=== PATIENT | female | born 1970 | race Caucasian/White ===

== ENCOUNTER 2020-10-23 09:39 | Emergency (ER) | payer SELFPAY ==
--- NOTE | 2020-10-23 10:18 | RAD REPORT ---
EXAM DESCRIPTION: CT - Ct Stroke Brain Wo Cont - 10/23/2020 10:06 am CLINICAL HISTORY: WEAKNESS Headache, drowsiness, CVA symptomology COMPARISON: No comparisons TECHNIQUE: All CT scans are performed using dose optimization technique as appropriate and may inclu de automated exposure control or mA/KV adjustment according to patient size. FINDINGS: No intracranial hemorrhage, hydrocephalus or extra-axial fluid collection.Areas of diminis hed density measuring 5 cm in the left frontal region none left posterior parietal region measuring 2 cm noted. These have the appearance gliosis/remote infarction. The paranasal sinuses and mastoids are clear. The calvarium is intact. IMPRESSION: No acute intracranial abnormality. 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 If there is continued clinical concern for acute CVA, MRI brain would be advised. The findings were discussed with Dr. Santiago in the ER On 10/23/2020 at 10:13 a.m. by telephone.
[2020-10-23 10:25] LABS: Absolute Lymphocytes (CBC) 1.7 K/uL (0.7-4.9); Basophils % 0.7 % (0-1.3); Hematocrit 39.1 % (36.0-45.0); Lymphocytes % 18.8 % (15.3-44.8); MPV 8.9 fL (7.6-11.3); RBC Red Blood Cell Count 4.24 M/uL (3.86-4.86)
[2020-10-23 10:26] LABS: Protime INR 0.92
[2020-10-23 10:37] LABS: BUN Blood Urea Nitrogen 12 mg/dL (7-18); Bicarbonate 27 mmol/L (21-32); Glucose Level 98 mg/dL (74-106); Sodium Level 141 mmol/L (136-145)
[2020-10-23] MEDS ORDERED: TRAMADOL HCL 50 MG TAB ONE (11:07)
--- NOTE | 2020-10-23 11:37 | RAD REPORT ---
EXAM DESCRIPTION: RAD - Chest Single View - 10/23/2020 11:20 am CLINICAL HISTORY: weak Chest pain. COMPARISON: No comparisons FINDINGS: Portable technique limits examination quality. The lungs are grossly clear. The heart is normal in size. No displaced fractures. IMPRESSION: No acute intrathoracic process suspected.
--- NOTE | 2020-10-23 15:40 | RAD REPORT ---
EXAM DESCRIPTION: MRI - Brain W/Wo Cont - 10/23/2020 3:23 pm CLINICAL HISTORY: Numbness, weaknessright-sided blurred vision, right arm numbness and weakness, hea dache COMPARISON: MRA Head Wo Cont dated 10/23/2020; MRA Neck W/Wo Cont dated 10/23/2020; Ct Stroke Brain Wo Cont dated 10/23/2020 TECHNIQUE: Sagittal and axial T1-weighted images were obtained. Axial PD/heavily T2-weighted and T2- FLAIR images were obtained along with axial DWI/ADC mapping sequences. Coronal heavily T2 weighted s equence obtained. Axial and coronal post-contrast T1-weighted images were also obtained. A 17 ml Mul tihance contrast following utilized. FINDINGS: No intracranial hemorrhage, mass or acute infarction. Moderately large area of gliosis pre sent in the lateral aspect of the left frontal lobe. There is hyperintense T2/IR signal along the jesus ndary of the gliosis There is no edema or shift of midline structures. No extra-axial fluid collectio ns. Bethea-matter/white matter junction is preserved. Signal voids are seen as a normal finding in the major intracranial vessels. Patient has no significant atrophy or chronic ischemic change. Ventricle s are normal. No globe or orbital content abnormality seen. Post-contrast images show normal enhancement. No dural thickening. Mastoid air cells and paranasal sinuses are clear. Asymmetry of the petrous apices noted. There is no rmal aeration on the right. Hyperintense T2/IR signal is present in the left petrous apex with less i ntense increased T1 signal. The T1 signal does not change on postcontrast imaging. CT imaging shows n on mineralized opacification of the left petrous apex. This may be an old or chronic petrous apicitis pattern that is unrelated to any acute clinical presentation. IMPRESSION: No acute infarction changes are present. No acute intracranial finding seen. Patient has moderately large area of gliosis and associated signal abnormality along the margins of t he gliosis lateral left frontal lobe. This matches the CT finding and is consistent with old ischemic insult. Signal abnormality in the left petrous apex is probably from an old infectious/inflammatory process. This is probably not active and is not believed be related to the patient's acute clinical presentati on.
--- NOTE | 2020-10-23 15:44 | RAD REPORT ---
EXAM DESCRIPTION: MRI - MRA Head Wo Cont - 10/23/2020 3:23 pm CLINICAL HISTORY: CVA, right-sided blurred vision, weakness right arm, headache COMPARISON: MRI brain same date, CT head same date TECHNIQUE: Axial and coronal 3D [id number]-wvihab image acquisition was performed. 3D rotational images were generated with source and reconstruction images reviewed. Horizontal and vertical axis rotation al views generated using MIP protocol. FINDINGS: Major venous sinuses are patent. No aneurysm or vascular malformation identifiable. Distal vertebral arteries, basilar arteries and posterior cerebral arteries show no significant findi ngs. From skullbase to supraclinoid termination the internal carotid arteries also without significan t finding. Anterior cerebral artery circulation and right middle cerebral artery circulation are unre markable. There is some truncation or diminished size to left MCA branches supplying the lateral aspe ct of the left frontal lobe at the area of known remote gliosis. This is not an acute finding or of a cute clinical significance. IMPRESSION: MRA head examination, as detailed above, shows no acute vascular abnormality.
--- NOTE | 2020-10-23 15:45 | RAD REPORT ---
EXAM DESCRIPTION: MRI - MRA Neck W/Wo Cont - 10/23/2020 3:23 pm CLINICAL HISTORY: CVA, right-sided blurred vision, right arm numbness and weakness, headache COMPARISON: CT head same date, MRI brain same date, MRA head same date TECHNIQUE: MR angiography of the cervical vasculature performed. Coronal imaging plane acquisition u tilized. A 17 MultiHance contrast volume was utilized. Coronal reformatted images were generated and reviewed. Vertical axis 3D rotational projections obtained using maximum intensity projection protoco l. FINDINGS: Aortic arch is 3 vessel configuration with no origins stenosis. Origins of the codominant vertebral arteries without suspicious finding. The bilateral common carotid and internal carotid victorino isaías show no dissection, stenosis or suspicious findings. There is tortuosity of the mid and distal p ortions of the internal carotid arteries. No subclavian artery abnormality seen. IMPRESSION: Unremarkable MRA of the neck
--- NOTE | 2020-10-23 16:36 | ER ---
Nurse's Notes [facility] Name: Emilia Kendall Age: 50 yrs Sex: Female : 1970 Arrival Date: 10/23/2020 Time: 09:45 Bed 5 Private MD: Diagnosis: Palpitations;Paresthesia of skin Presentation: 10/23 09:45 Coronavirus screen: At this time, the client does not indicate any symptoms associated hb with coronavirus-19. Ebola Screen: No symptoms or risks identified at this time. Risk Assessment: Do you want to hurt yourself or someone else? Patient reports no desire to harm self or others. Onset of symptoms was October 22, 2020. 09:45 Method Of Arrival: Ambulatory hb 09:45 Chief complaint: Patient states: heart fluttering, SOB, HARTMANN, dizziness, R arm \T\ leg sv weakness and numbness, L hand numbness started 2100 last night. 09:45 Acuity: EDITH 3 sv 09:50 Initial Sepsis Screen: Does the patient meet any 2 criteria? No. Patient's initial hb sepsis screen is negative. Does the patient have a suspected source of infection? No. Patient's initial sepsis screen is negative. Triage Assessment: 09:45 General: Appears in no apparent distress. uncomfortable, well developed, Behavior is sv calm, cooperative, appropriate for age. Pain: Denies pain. Neuro: Level of Consciousness is awake, alert, obeys commands, Oriented to person, place, time, situation, [employer] Operator are weak on right Weakness in right arm(s) leg(s) Speech is normal, Reports dizziness, headache numbness in right arm and left hand weakness in right arm and right leg. Respiratory: Respiratory effort is even, unlabored. Historical: - Allergies: 09:51 No Known Allergies; sv - PMHx: 09:53 CVA (2019); sv - PSHx: 09:51 Tubal ligation; Hysterectomy; Breast augmentation; sv - Immunization history:: Adult Immunizations up to date. - Social history:: Smoking status: Patient denies any tobacco usage or history of. Screenin:45 VAN Screening: Arm Drift: Minor drift. Visual Disturbance: No visual disturbance noted. sv Aphasia: No aphasia noted. Neglect: No neglect noted. 10:49 Abuse screen: Denies threats or abuse. Denies injuries from another. Nutritional hb screening: No deficits noted. Tuberculosis screening: No symptoms or risk factors identified. Fall Risk None identified. Assessment: 10:30 General: Appears in no apparent distress. Behavior is calm, cooperative. Pain: Pain hb currently is 8 out of 10 on a pain scale. 10:30 Neuro: Level of Consciousness is awake, alert, obeys commands, Oriented to person, hb place, time, situation. Cardiovascular: Patient's skin is warm and dry. Respiratory: Respiratory effort is even, unlabored, Respiratory pattern is regular, symmetrical. GI: No signs and/or symptoms were reported involving the gastrointestinal system. : No signs and/or symptoms were reported regarding the genitourinary system. EENT: No signs and/or symptoms were reported regarding the EENT system. Derm: Skin is pink, warm \T\ dry. Musculoskeletal: Reports right sided weakness. 11:22 Reassessment: Patient appears in no apparent distress at this time. Patient and/or hb family updated on plan of care and expected duration. Pain level reassessed. Patient is alert, oriented x 3, equal unlabored respirations, skin warm/dry/pink. 12:15 Reassessment: Patient appears in no apparent distress at this time. Patient and/or hb family updated on plan of care and expected duration. Pain level reassessed. Patient is alert, oriented x 3, equal unlabored respirations, skin warm/dry/pink. 13:00 Reassessment: Patient appears in no apparent distress at this time. Patient and/or hb family updated on plan of care and expected duration. Pain level reassessed. Patient is alert, oriented x 3, equal unlabored respirations, skin warm/dry/pink. 13:58 Reassessment: Patient appears in no apparent distress at this time. Patient and/or hb family updated on plan of care and expected duration. Pain level reassessed. Patient is alert, oriented x 3, equal unlabored respirations, skin warm/dry/pink. 14:11 Reassessment: Pt to MRI. hb 15:18 Reassessment: Pt returned from MRI. hb 16:03 Reassessment: Patient appears in no apparent distress at this time. Patient and/or hb family updated on plan of care and expected duration. Pain level reassessed. Patient is alert, oriented x 3, equal unlabored respirations, skin warm/dry/pink. 17:00 Reassessment: Discharge pending halter monitor set up. hb 17:40 Reassessment: Patient appears in no apparent distress at this time. No changes from hb previously documented assessment. Patient and/or family updated on plan of care and expected duration. Pain level reassessed. Patient is alert, oriented x 3, equal unlabored respirations, skin warm/dry/pink. Vital Signs: 09:45 BP 129 / 81; Pulse 85; Resp 18; Pulse Ox 98% ; Weight 74.84 kg; Height 5 ft. 5 in. sv (165.10 cm); Pain 0/10; 11:00 BP 119 / 84; Pulse 63; Resp 14; Pulse Ox 98% on R/A; hb 12:00 BP 98 / 68; Pulse 70; Resp 16; Pulse Ox 98% on R/A; hb 13:00 BP 97 / 67; Pulse 70; Resp 15; Pulse Ox 99% on R/A; hb 16:00 BP 131 / 72; Pulse 72; Resp 16; Pulse Ox 100% ; hb 17:15 BP 114 / 84; Pulse 74; Resp 16; Pulse Ox 99% on R/A; Pain 0/10; hb 09:45 Body Mass Index 27.46 (74.84 kg, 165.10 cm) sv ED Course: 09:45 Patient arrived in ED. sv 09:45 Arm band placed on. hb 09:48 Cesario Santiago MD is Attending Physician. kdr 09:50 Triage completed. sv 09:50 EKG done, by ED staff. mb4 09:54 Placed in gown. Bed in low position. Call light in reach. Side rails up X 1. Cardiac mb4 monitor on. Pulse ox on. NIBP on. 09:55 Initial lab(s) drawn, by ED staff, sent to lab. sv 10:06 CT Stroke Brain w/o Contrast In Process Unspecified. EDMS 10:27 Barbara Vargas, MONA is Primary Nurse. hb 10:45 Inserted saline lock: 22 gauge in right forearm, using aseptic technique. hb 11:20 Stroke CXR 1 View In Process Unspecified. EDMS 15:47 MRA Neck W/Wo Cont In Process Unspecified. EDMS 18:02 No provider procedures requiring assistance completed. IV discontinued, intact, em bleeding controlled, No redness/swelling at site. Pressure dressing applied. Administered Medications: No medications were administered Outcome: 16:36 Discharge ordered by . kdr 18:02 Discharged to home ambulatory. em 18:02 Condition: stable 18:02 Discharge instructions given to patient, Instructed on discharge instructions, follow up and referral plans. Demonstrated understanding of instructions, follow-up care. 18:03 Patient left the ED. em Signatures: Dispatcher [employer] Lashell Fontana RN RN Cesario Santiago MD MD [facility] Jani Crespo RN RN Barbara Vargas RN RN Ramonita Vargas Corrections: (The following items were deleted from the chart) 09:49 09:45 Chief complaint: Headache, right arm weakness, and palpitations since 9 pm last hb night. hb 09:53 09:51 PMHx: CVA; sv sv 09:54 09:54 EKG done, by ED staff, aracely mb4 10:04 09:45 74.84 kg; Height 5 ft. 5 in.; BMI: 27.4; Pain 0/10; sv sv
--- NOTE | 2020-10-23 16:36 | EDPHYS ---
Physician Documentation [facility] Name: Emilia Kendall Age: 50 yrs Sex: Female : 1970 Arrival Date: 10/23/2020 Time: 09:45 Bed 5 Private MD: ED Physician Cesario Santiago HPI: 10/23 10:26 This 50 yrs old Female presents to ER via Ambulatory with complaints of kdr Numbness, General Weakness, Shortness Of Breath, Headache, Dizziness. 10:26 The patient's problem is reported as paresthesias, in right upper extremity, in right kdr lower extremity, weakness, in the right upper extremity. Onset: The symptoms/episode began/occurred yesterday, at 21:00. Duration: This was a single incident, The episode is continuous, the symptoms became persistent last ngiht. Context: symptoms became apparent at 21:00. occurred at home, occurred while the patient was at rest. The symptoms are alleviated by nothing. The patient states that last evening she noted the onset of symptoms at about 9:00 PM. Associated signs and symptoms: Pertinent positives: dizziness, headache. Onset: The symptoms/episode began/occurred suddenly, last night. Severity of symptoms: At their worst the symptoms were mild in the emergency department the symptoms are unchanged. Severity of symptoms: At their worst the symptoms were mild in the emergency department the symptoms Pain is currently a / 10. Patient's baseline: Neuro: alert and fully oriented, Motor: no deficits, Ambulation: walks without assistance, Speech: normal, The patient has a previous history of CVA. The patient has experienced similar episodes in the past, a few times. The patient has not recently seen a physician. Historical: - Allergies: 09:51 No Known Allergies; sv - PMHx: 09:53 CVA (2019); sv - PSHx: 09:51 Tubal ligation; Hysterectomy; Breast augmentation; sv - Immunization history:: Adult Immunizations up to date. - Social history:: Smoking status: Patient denies any tobacco usage or history of. ROS: 10:26 Constitutional: Negative for fever, chills, and weight loss, Eyes: Negative for injury, kdr pain, redness, and discharge, ENT: Negative for injury, pain, and discharge, Neck: Negative for injury, pain, and swelling, Cardiovascular: Negative for chest pain, palpitations, and edema, Respiratory: Negative for shortness of breath, cough, wheezing, and pleuritic chest pain, Abdomen/GI: Negative for abdominal pain, nausea, vomiting, diarrhea, and constipation, Back: Negative for injury and pain, : Negative for injury, bleeding, discharge, and swelling, MS/Extremity: Negative for injury and deformity, Skin: Negative for injury, rash, and discoloration, Psych: Negative for depression, anxiety, suicide ideation, homicidal ideation, and hallucinations, Allergy/Immunology: Negative for hives, rash, and allergies, Endocrine: Negative for neck swelling, polydipsia, polyuria, polyphagia, and marked weight changes, Hematologic/Lymphatic: Negative for swollen nodes, abnormal bleeding, and unusual bruising. 10:26 Neuro: Positive for dizziness, headache, Negative for altered mental status, gait disturbance, hearing loss, loss of consciousness, numbness, seizure activity, speech changes, syncope, near syncope, tingling, tinnitus, tremor, visual changes, acute changes. Exam: 10:15 ECG was reviewed by the Attending Physician. kdr 10:26 Radiologist reports: negative/Rick kdr 10:26 Constitutional: This is a well developed, well nourished patient who is awake, alert, and in no acute distress. Head/Face: Normocephalic, atraumatic. Eyes: Pupils equal round and reactive to light, extra-ocular motions intact. Lids and lashes normal. Conjunctiva and sclera are non-icteric and not injected. Cornea within normal limits. Periorbital areas with no swelling, redness, or edema. Neck: Trachea midline, no thyromegaly or masses palpated, and no cervical lymphadenopathy. Supple, full range of motion without nuchal rigidity, or vertebral point tenderness. No Meningismus. Chest/axilla: Normal chest wall appearance and motion. Nontender with no deformity. No lesions are appreciated. Cardiovascular: Regular rate and rhythm with a normal S1 and S2. No gallops, murmurs, or rubs. Normal PMI, no JVD. No pulse deficits. Respiratory: Lungs have equal breath sounds bilaterally, clear to auscultation and percussion. No rales, rhonchi or wheezes noted. No increased work of breathing, no retractions or nasal flaring. Abdomen/GI: Soft, non-tender, with normal bowel sounds. No distension or tympany. No guarding or rebound. No evidence of tenderness throughout. Back: No spinal tenderness. No costovertebral tenderness. Full range of motion. Skin: Warm, dry with normal turgor. Normal color with no rashes, no lesions, and no evidence of cellulitis. Neuro: Awake and alert, GCS 15, oriented to person, place, time, and situation. Cranial nerves II-XII grossly intact. Motor strength 5/5 in all extremities. Sensory grossly intact. Cerebellar exam normal. Normal gait. Psych: Awake, alert, with orientation to person, place and time. Behavior, mood, and affect are within normal limits. 10:26 Musculoskeletal/extremity: Extremities: Diminished sensation to upper extremities from the shoulder down. Vital Signs: 09:45 BP 129 / 81; Pulse 85; Resp 18; Pulse Ox 98% ; Weight 74.84 kg; Height 5 ft. 5 in. sv (165.10 cm); Pain 0/10; 11:00 BP 119 / 84; Pulse 63; Resp 14; Pulse Ox 98% on R/A; hb 12:00 BP 98 / 68; Pulse 70; Resp 16; Pulse Ox 98% on R/A; hb 13:00 BP 97 / 67; Pulse 70; Resp 15; Pulse Ox 99% on R/A; hb 16:00 BP 131 / 72; Pulse 72; Resp 16; Pulse Ox 100% ; hb 17:15 BP 114 / 84; Pulse 74; Resp 16; Pulse Ox 99% on R/A; Pain 0/10; hb 09:45 Body Mass Index 27.46 (74.84 kg, 165.10 cm) sv MDM: 10:26 Data reviewed: vital signs, nurses notes, lab test result(s), radiologic studies. kdr Counseling: I had a detailed discussion with the patient and/or guardian regarding: the historical points, exam findings, and any diagnostic results supporting the discharge/admit diagnosis, lab results, radiology results, the need for outpatient follow up. 16:36 Patient medically screened. kdr 10/23 09:51 Order name: Basic Metabolic Panel; Complete Time: 11:27 kdr 10/23 09:51 Order name: CBC with Diff; Complete Time: 11:27 kdr 10/23 09:51 Order name: Protime (+inr); Complete Time: 11:27 kdr 10/23 09:51 Order name: Ptt, Activated; Complete Time: 11: [facility] 10/23 09:51 Order name: CT Stroke Brain w/o Contrast; Complete Time: : [facility] 10/23 09:51 Order name: Stroke CXR 1 View; Complete Time: 16:00 [facility] 10/23 09:51 Order name: EKG; Complete Time: 09:52 [facility] 10/23 09:51 Order name: Accucheck; Complete Time: 10:48 [facility] 10/23 09:51 Order name: Cardiac monitoring; Complete Time: 10:48 [facility] 10/23 14:39 Order name: MRA Head Wo Cont; Complete Time: 16:00 EDMS 10/23 14:41 Order name: MRA Neck W/Wo Cont EDMS 10/23 14:41 Order name: Brain W/Wo Cont; Complete Time: 16:00 EDMS 10/23 09:51 Order name: EKG - Nurse/Tech; Complete Time: 11:25 [facility] 10/23 09:51 Order name: IV Saline Lock; Complete Time: 10:49 [facility] 10/23 09:51 Order name: Labs collected and sent; Complete Time: 10: [facility] 10/23 09:51 Order name: NPO; Complete Time: 10:48 [facility] 10/23 09:51 Order name: O2 Per Protocol; Complete Time: 10: [facility] 10/23 09:51 Order name: O2 Sat Monitoring; Complete Time: 10: [facility] 10/23 09:51 Order name: Stroke Swallow Screen; Complete Time: 10:48 kdr EC:15 Rate is 83 beats/min. Rhythm is regular, Sinus Rhythm with No ectopy. QRS [place] is kdr Normal. [place] interval is normal. QRS interval is normal. QT interval is normal. Clinical impression: NSR w/ Non-specific ST/T Changes. Administered Medications: No medications were administered Disposition: 10/23/20 16:36 Discharged to Home. Impression: Palpitations, Paresthesia of skin. - Condition is Stable. - Discharge Instructions: Holter Monitoring, Palpitations, [id number]-[id number], Paresthesia, [id number], Dizziness, Cjjj-eu-Butn. - Medication Reconciliation Form, Thank You Letter form. - Follow up: Private Physician; When: 2 - 3 days; Reason: If symptoms return, Further diagnostic work-up, Recheck today's complaints, Continuance of care, Re-evaluation by your physician. - Problem is new. - Symptoms have improved. - Notes: Please come tomorrow 10/24/20 between 8am-1pm to get an Event monitor placed by the cardiology department. Come to the front of the hospital and wait in the main lobby. We have given your name and phone # to the form presser department. Cardiology department # is [phone]. Call tomorrow with any problems. Signatures: Dispatcher [employer] [facility] Lashell Harris, RN RN sv Cesario Santiago MD MD [facility] Jani Crespo RN RN Barbara Vargas RN RN Corrections: (The following items were deleted from the chart) 09:53 09:51 PMHx: CVA; sv sv 14:39 10:18 MR STROKE PROTOCOL+MRI.RAD.BRZ ordered. [facility] 18:03 16:36 10/23/2020 16:36 Discharged to Home. Impression: Palpitations; Paresthesia of em skin. Condition is Stable. Forms are Medication Reconciliation Form, Thank You Letter, Antibiotic Education, Prescription Opioid Use. Follow up: Private Physician; When: 2 - 3 days; Reason: If symptoms return, Further diagnostic work-up, Recheck today's complaints, Continuance of care, Re-evaluation by your physician. Problem is new. Symptoms have improved. kdr
[2020-10-23 18:18] VITALS: BP 114/84; O2SAT 99
--- NOTE | 2020-10-24 07:52 | EKG ---
Test Date: 2020-10-23 Test Time: 09:50:20 Wet Mixer: KIMMY MEASUREMENT RESULTS: Intervals: Rate: 83 MI: 132 QRSD: 70 QT: 388 QTc: 455 Atlas: P: 40 MI: 132 QRS: 55 T: 17 INTERPRETIVE STATEMENTS: Normal sinus rhythm Septal infarct, age undetermined Abnormal ECG No previous ECG available for comparison Electronically Signed On 10-24-20 07:51:34 CDT by Omi Weiner
== END 2020-10-23 18:03 | disposition home or self-care (01) ==
LOC: ER 09:39
DX: R00.2 Palpitations (principal); Z86.73 Personal history of transient ischemic attack (TIA), and cerebral infarction without residual deficits; Z98.82 Breast implant status
CPT/HCPCS: 36415; 70450; 70544; 70549; 70553; 71045; 80048; 85025; 85610; 85730; 93005; 99284; A9577